=== PATIENT | female | born 1990 | race Caucasian/White ===

== ENCOUNTER 2017-05-15 18:59 | Emergency (ER) | payer MEDICAID, OTHER ==
[~2017-05-15] VITALS: Ht 162.6 cm; Wt 70.5 kg
[2017-05-15 19:10] VITALS: Ht 162.6 cm; Wt 70.5 kg
[2017-05-15] MEDS ORDERED: PREN-21 PO (22:11)
--- NOTE | 2017-05-15 22:11 | ERD ---
ER Documentation Chief Complaint Date/Time DATE: 05/15/17 TIME: 22:10 Chief Complaint Pt reports abd pain since yesterday denies bleeding 15 weeks preg HPI 26-year-old female presents to emergency department for complaints of lower back pain and lower abdominal pain that started yesterday. Patient describes the pain as cramping pain, 4/10 scale, intermittent pain. Patient is approximately 15 weeks . 3 para 1 0. LMP 02/25/2017. Patient denies any fever or chills. Patient denies any hematuria or dysuria. Patient did not take any medications to help with symptoms. ROS All systems reviewed and are negative except as per history of present illness. Medications Home Meds Reported Medications [id number]/Iron Fumarate/FA/Dss ( 19 Tablet) Unknown Strength Tablet, PO, TAB 05/15/17 Allergies Allergies: Coded Allergies: No Known Allergy (Unverified , 05/15/17) PMhx/Soc Medical and Surgical Hx: pt denies Medical Hx, pt denies Surgical Hx Hx Alcohol Use: No Hx Substance Use: No Hx Tobacco Use: No Smoking Status: Never smoker FmHx Family History: No coronary disease, No diabetes, No other Physical Exam Vitals Vital Signs Date Time Temp Pulse Resp B/P Pulse Ox O2 Delivery O2 Flow Rate FiO2 05/15/17 19:10 98.2 81 18 113/65 98 Physical Exam GENERAL: The patient is well developed and appropriate for usual state of health, in no apparent distress. CHEST: Clear to auscultation bilaterally. There are no rales, wheezes or rhonchi. HEART: Regular rate and rhythm. No murmurs, clicks, rubs or gallops. No S3 or S4. ABDOMEN: Soft, nontender and nondistended. Good bowel sounds. No rebound or guarding. No gross peritonitis. No gross organomegaly or masses. No Saenz sign or McBurney point tenderness. BACK: No midline or flank tenderness. EXTREMITIES: Equal pulses bilaterally. There is no peripheral clubbing, cyanosis or edema. No focal swelling or erythema. Full range of motion. Grossly neurovascularly intact. NEURO: Alert and oriented. Cranial nerves 2-12 intact. Motor strength in all 4 extremities with 5/5 strength. Sensation grossly intact. Normal speech and gait. SKIN: There is no apparent rash or petechia. The skin is warm and dry. HEMATOLOGIC AND LYMPHATIC: There is no evidence of excessive bruising or lymphedema. No gross cervical, axillary, or inguinal lymphadenopathy. Result Diagram: 05/15/17219905/15/172199 Results 24 hrs Laboratory Tests Test 05/15/17 22:00 05/16/17 00:00 White Blood Count 7.010^3/ul Red Blood Count 3.9910^6/ul Hemoglobin 12.2g/dl Hematocrit 35.5% Mean Corpuscular Volume 89.0fl Mean Corpuscular Hemoglobin 30.6pg Mean Corpuscular Hemoglobin Concent 34.4g/dl Red Cell Distribution Width 13.0% Platelet Count 98823^3/UL Mean Platelet Volume 10.4fl Neutrophils % 63.7% Lymphocytes % 29.0% Monocytes % 5.5% Eosinophils % 1.1% Basophils % 0.4% Nucleated Red Blood Cells % 0.0/100WBC Neutrophils # 4.510^3/ul Lymphocytes # 2.010^3/ul Monocytes # 0.410^3/ul Eosinophils # 0.110^3/ul Basophils # 0.010^3/ul Nucleated Red Blood Cells # 0.010^3/ul Sodium Level 137mmol/L Potassium Level 3.8mmol/L Chloride Level 106mmol/L Carbon Dioxide Level 22mmol/L Anion Gap 13 Blood Urea Nitrogen 5mg/dl Creatinine 0.57mg/dl Glucose Level 88mg/dl Calcium Level 9.7mg/dl Total Bilirubin 0.2mg/dl Direct Bilirubin 0.00mg/dl Indirect Bilirubin 0.2mg/dl Aspartate Amino Transf (AST/SGOT) 16IU/L Alanine Aminotransferase (ALT/SGPT) 28IU/L Alkaline Phosphatase 100IU/L Total Protein 8.2g/dl Albumin 4.4g/dl Globulin 3.80g/dl Albumin/Globulin Ratio 1.15 Beta HCG, Quantitative 49158.0mIU/ml Urine Color YELLOW Urine Clarity CLEAR Urine pH 6.0 Urine Specific [place] 1.008 Urine Ketones NEGATIVEmg/dL Urine Nitrite NEGATIVEmg/dL Urine Bilirubin NEGATIVEmg/dL Urine Urobilinogen NEGATIVEmg/dL Urine Leukocyte Esterase NEGATIVELeu/ul Urine Hemoglobin NEGATIVEmg/dL Urine Glucose NEGATIVEmg/dL Urine Total Protein NEGATIVEmg/dl PROCEDURE: US OB. CLINICAL INDICATION: . Pelvic pain. TECHNIQUE: Multiple sonographic images of the uterus were obtained. The images were reviewed on a PACS workstation. COMPARISON: No prior studies are available for comparison. FINDINGS: There is a single live intrauterine gestation. heart rate is 146 beats per minute. Measurements were made in order to determine age. The results are as follows: BPD = 3.64 cm. HC = 13.02 cm. AC = 10.74 cm. FL = 2.38 cm. Estimated weight is 173 +/- 26 grams. LMP growth percentile is greater than 97 %. Menstrual age by ultrasound dates is 16 weeks 6 days. The estimated date of delivery is 10/24/2017. Maximum vertical pocket of amniotic fluid is 4.3 cm. Cervical length is 3.2 cm. Position is variable and placenta is anterior grade 0. There is no evidence for an abruption or placenta previa. IMPRESSION: 1. Single live intrauterine gestation of 16 weeks 6 days menstrual age by ultrasound dates. 2. The estimated date of delivery is 10/24/2017. 3. Cervical length is 3.2 cm. RPTAT: QQ .Gui Juares MD, MD Date Time Electronically viewed and signed by .Gui Juares MD, MD on 05/15/2017 22:56 .R/ Procedures/MDM Medical Decision Making: Patient's back is from the growing , common during second trimester. Patient has a viable , no leukocytosis, no bandemia. Patient does not have any urinary tract infection. There is low suspicion for abdominal emergencies at this time. Patients abdominal exam is normal at this time. Patients radiology exam does not show any abdominal emergencies at this time. There is low suspicion for appendicitis, cholecystitis , abdominal aortic aneurysms or peritonitis at this time. There is low suspicion for sepsis. Patient appears well and is hemodynamically stable. Disposition: Home. Condition: Stable Prescription Tylenol Instructions: Patient is advised to take medications as prescribed. Patient is advised to rest, increase fluid intake and do brat diet for next 1-2 days and progress as tolerated. Patient is advised that if symptoms are worse, severe abdominal pain, uncontrolled vomiting, high fever, severe flank pain, worst signs and symptoms, to return to the emergency department immediately. Otherwise, patient can follow up with primary care doctor in 5-7 days. Disclaimer: Inadvertent spelling and grammatical errors are likely due to EHR/ dictation software use and do not reflect on the overall quality of patient care. Also, please note that the electronic time recorded on this note does not necessarily reflect the actual time of the patient encounter. Departure Diagnosis: Primary Impression: Pelvic pain Additional Impression: Intrauterine Condition: Stable Patient Instructions: Pelvic Pain In : Unclear (2-3 Trimester) Additional Instructions: Patient is advised to take medications as prescribed. Patient is advised to rest , increase fluid intake and do brat diet for next 1-2 days and progress as tolerated. Patient is advised that if symptoms are worse, severe abdominal pain , uncontrolled vomiting, high fever, severe flank pain, worst signs and symptoms , to return to the emergency department immediately. Otherwise, patient can follow up with primary care doctor in 5-7 days. KYLE SERRATO NP May 15, 2017 22:11
--- NOTE | 2017-05-15 22:56 | RADRPT ---
PROCEDURE: US OB. CLINICAL INDICATION: . Pelvic pain. TECHNIQUE: Multiple sonographic images of the uterus were obtained. The images were revi ewed on a PACS workstation. COMPARISON: No prior studies are available for comparison. FINDINGS: There is a single live intrauterine gestation. heart rate is 146 beats per minute. Measurements were made in order to determine age. The results are as follows: BPD = 3.64 cm. HC = 13.02 cm. AC = 10.74 cm. FL = 2.38 cm. Estimated weight is 173 +/- 26 grams. LMP growth percentile is greater than 97 %. Menstrual age by ultrasound dates is 16 weeks 6 days. The estimated date of delivery is 10/24/2017. Maximum vertical pocket of amniotic fluid is 4.3 cm. Cervical length is 3.2 cm. Position is variable and placenta is anterior grade 0. There is no evidence for an abruption or plac enta previa. IMPRESSION: 1. Single live intrauterine gestation of 16 weeks 6 days menstrual age by ultrasound dates. 2. The estimated date of delivery is 10/24/2017. 3. Cervical length is 3.2 cm. RPTAT: QQ .Gui Juares MD, Date Time Electronically viewed and signed by .Gui Juares MD, on 05/15/2017 22:56 .R/
[2017-05-15 23:07] LABS: BASOPHILS % 0.4 % (0.0-2.0); EOSINOPHILS # 0.1 10^3/ul (0.0-0.5); EOSINOPHILS % 1.1 % (0.0-7.0); HEMATOCRIT 35.5 % (37.0-47.0); HEMOGLOBIN 12.2 g/dl (12.0-16.0); MEAN CORPUSCULAR HEMOGLOBIN 30.6 pg (29.0-33.0); MEAN CORPUSCULAR HGB CONC 34.4 g/dl (32.0-37.0); MEAN PLATELET VOLUME 10.4 fl (7.4-10.4); MONOCYTE # 0.4 10^3/ul (0.3-0.9); MONOCYTES % 5.5 % (0.0-11.0); NEUTROPHIL # 4.5 10^3/ul (1.6-7.5); NEUTROPHILS % 63.7 % (39.0-77.0); PLATELET COUNT 176 10^3/UL (140-415); RED BLOOD COUNT 3.99 10^6/ul (4.20-5.40)
[2017-05-15 23:24] LABS: ALBUMIN 4.4 g/dl (3.3-4.9); ALBUMIN/GLOBULIN RATIO 1.15; BILIRUBIN,INDIRECT 0.2 mg/dl (0-1.1); BILIRUBIN,TOTAL 0.2 mg/dl (0.2-1.3); CALCIUM 9.7 mg/dl (8.4-10.2); CREATININE 0.57 mg/dl (0.44-1.00); POTASSIUM 3.8 mmol/L (3.5-5.1); TOTAL PROTEIN 8.2 g/dl (6.1-8.1)
[2017-05-16 00:41] LABS: ADD UMIC NO; UR ASCORBIC ACID NEGATIVE (NEGATIVE); UR BILIRUBIN (Dip) NEGATIVE (NEGATIVE); UR BLOOD (Dip) NEGATIVE (NEGATIVE); UR CLARITY CLEAR (CLEAR); UR COLOR YELLOW (YELLOW); UR GLUCOSE (Dip) NEGATIVE (NEGATIVE); UR KETONES (Dip) NEGATIVE (NEGATIVE); UR LEUKOCYTE ESTERASE (Dip) NEGATIVE Leu/ul (NEGATIVE); UR NITRITE (Dip) NEGATIVE (NEGATIVE); UR SPECIFIC GRAVITY (Dip) 1.008 (1.003-1.030); UR TOTAL PROTEIN (Dip) NEGATIVE (NEGATIVE); UR UROBILINOGEN (Dip) NEGATIVE (NEGATIVE)
[2017-05-16] MEDS ORDERED: ACET500C5 PO (01:12)
[2017-05-16 01:37] VITALS: BP 112/64; PULSE 62; RESP 16; TEMP 98.1
== END 2017-05-16 01:38 | disposition home or self-care (01) ==
LOC: FTE 18:59 → EDBD 18:59 → FTE 05-16 01:38
DX: O26.892 Other specified pregnancy related conditions, second trimester (principal); R10.2 Pelvic and perineal pain; Z3A.16 16 weeks gestation of pregnancy
CPT/HCPCS: 76805; 80053; 81003; 84702; 85025; 86900; 86901; Z7502